=== PATIENT | male | born 1985 | race Caucasian/White ===

== ENCOUNTER 2023-10-25 14:58 | Emergency (ER) | payer BC ==
[2023-10-25] MEDS ORDERED: Ketorolac 60 MG/2 ML SDV IM ONE (16:14)
[2023-10-25] MEDS: methylPREDNISolone Sodium Succinate 125 MG/2 ML SDV IVPUSH ONE (17:29)
[2023-10-25] MEDS: Sodium Chloride 0.9% 10 ML Syringe FLUSH PRN (17:29)
[2023-10-25] MEDS: Ketorolac 30 MG/ML SDV IVPUSH ONE (17:29)
[2023-10-25] MEDS: Acetaminophen/HYDROcodone 325-5 MG Tab PO ONE (18:56)
[2023-10-25] MEDS: tiZANidine 4 MG Tab PO ONE (18:56)
== END 2023-10-25 19:01 | disposition home or self-care (01) ==
LOC: JD.ED 14:58
DX: M62.830 Muscle spasm of back (principal); Z79.899 Other long term (current) drug therapy
CPT/HCPCS: 96374; 96375; 96376; 99283; A9270; J1885; J2930; J3360; J3490